=== PATIENT | female | born 1975 | race Caucasian/White ===

== ENCOUNTER 2017-03-22 12:56 | Day surgery (SDC) | payer OTHER ==
[~2017-03-22] VITALS: Ht 167.6 cm; Wt 81.5 kg
[2017-03-22 13:46] VITALS: Ht 167.6 cm; Wt 81.5 kg
[2017-03-22] MEDS ORDERED: CITRACAL PO (13:54)
[2017-03-22] MEDS ORDERED: CHOL400T10 PO (13:54)
[2017-03-22] MEDS ORDERED: SYN112 PO (13:54)
[2017-03-22 14:13] VITALS: BP 110/69; PULSE 54; RESP 16
[2017-03-22] MEDS ORDERED: FENTAnyl 50 MCG/ML VIAL ONE (14:59)
[2017-03-22] MEDS ORDERED: MIDAZOLAM 1 MG/ML 2 ML INJ ONE ×3 (14:59)
[2017-03-22 15:25] VITALS: BP 106/67; RESP 20
--- NOTE | 2017-03-23 10:33 | GILP ---
DATE OF PROCEDURE: 03/22/2017 PROCEDURE: Esophagogastroduodenoscopy with biopsies. HISTORY AND INDICATIONS: The patient is being evaluated for abdominal pain. PREMEDICATION: Versed 6 mg and fentanyl [address] Stark. INSTRUMENT USED: Olympus endoscope. TECHNIQUE: After informed consent, with the patient/relatives understanding the procedure, its indications, potential risks and complications, including but not limited to: allergic reaction, bleeding, perforation or infection, and after all pertinent questions were answered to the patients satisfaction, the patient/relatives signed witnessed informed consent. Following this, premedication was administered slowly IV push under careful cardiovascular and respiratory monitoring with pulse oximetry, automatic blood pressure and environmental monitoring technician. Once the sedative effect was achieved the patient was place in the left lateral decubitus, the panendoscope was introduced and advanced under visual control. Careful examination of the upper gastrointestinal tract, both on insertion as well as withdrawal of the instrument disclosed the following findings: Esophagus: The mucosa of the entire esophagus appears within normal limits. There is no evidence of esophagitis, varices, neoplasm or stricture. No Hiatal Hernia identified. Stomach: Upon entrance to the stomach air was insufflated, the gastric ribeiro distended normally. There is erythema and edema of the mucosa of a mild degree. Biopsies were obtained to rule out H. pylori infection. Pylorus: The pylorus appears patent and within normal limits, with no evidence of gastric outlet obstruction. Duodenum: The duodenal mucosa was carefully examined in the duodenal bulb as well as the second portion of the duodenum and appears unremarkable with no evidence of duodenitis, ulcer or neoplasm. The instrument was then withdrawn, the patient tolerated the procedure well and was transfer out of the endoscopy suite awake, and in good condition to continue recovery under observation. IMPRESSION: Mild gastritis, rule out Helicobacter pylori infection, biopsies obtained. RECOMMENDATIONS: The patient will be treated with omeprazole 40 mg daily. Pathology will be reviewed as soon as available. Further recommendations will depend on the patient's clinical course as well as review of biopsies. Dictated By: Celsa Stark MD /[email or web address] /Document#: [id number]
== END 2017-03-22 15:59 | disposition home or self-care (01) ==
LOC: GIL 12:56
PROVIDERS: ATTEND Internal Medicine Gastroenterology
DX: K29.50 Unspecified chronic gastritis without bleeding (principal)
CPT/HCPCS: 43239; 45378; 84703; 88305; 88312; J2250; J3010; Z7610